=== PATIENT | male | born 1980 | race Caucasian/White ===

== ENCOUNTER 2017-08-27 10:17 | Emergency (ER) | payer OTHER ==
[2017-08-27] MEDS ORDERED: Adacel (T-DAP) 0.5 ML VIAL ONE (10:41)
[2017-08-27] MEDS ORDERED: Bacitracin Zinc 1 Packet ONE (10:41)
== END 2017-08-27 10:59 | disposition home or self-care (01) ==
LOC: BURERS 10:17
DX: S61.411A Laceration without foreign body of right hand, initial encounter (principal); F17.210 Nicotine dependence, cigarettes, uncomplicated; Z23 Encounter for immunization; W45.8XXA Other foreign body or object entering through skin, initial encounter; Y92.69 Other specified industrial and construction area as the place of occurrence of the external cause; Y99.0 Civilian activity done for income or pay
CPT/HCPCS: 12001; 90471; 90715; J2001

== ENCOUNTER 2017-08-28 08:49 | Emergency (ER) | payer OTHER ==
[2017-08-28] MEDS ORDERED: Ibuprofen 800 MG TAB ONE (09:05)
== END 2017-08-28 09:09 | disposition home or self-care (01) ==
LOC: BURERS 08:49
DX: M25.512 Pain in left shoulder (principal); F17.210 Nicotine dependence, cigarettes, uncomplicated
CPT/HCPCS: 99283

== ENCOUNTER 2017-09-12 15:55 | Emergency (ER) | payer OTHER ==
[2017-09-12] MEDS ORDERED: Bacitracin Zinc 1 Packet ONE (16:11)
== END 2017-09-12 16:14 | disposition home or self-care (01) ==
LOC: BURERS 15:55
DX: S61.412A Laceration without foreign body of left hand, initial encounter (principal); F17.210 Nicotine dependence, cigarettes, uncomplicated; W26.8XXA Contact with other sharp object(s), not elsewhere classified, initial encounter; Y92.69 Other specified industrial and construction area as the place of occurrence of the external cause; Y99.0 Civilian activity done for income or pay
CPT/HCPCS: 12001